=== PATIENT | female | born 1945 | race Caucasian/White ===

== ENCOUNTER → 2016-12-12 | Outpatient (CLI) | payer MEDICARE ==
--- NOTE | 2016-12-12 16:46 | WWHP ---
[facility] - HISTORY AND PHYSICAL DATE OF DICTATION: 12/12/2016 CHIEF COMPLAINT: The patient is here for her routine gynecologic exam and mammogram. HPI: This is a 71-year-old G2, P2 with an LMP of in 1991. She is status post vaginal hysterectomy with BSO for uterine fibroids. She has been using Estrace cream for vaginal dryness and she states this has been very helpful. She has also used oxybutynin for mixed urinary incontinence and also feels that this has been very helpful. She is without gynecologic complaints. PAST MEDICAL HISTORY: Chronic hypertension, elevated cholesterol, and panic attacks. MEDICATIONS: 1. Simvastatin 10 mg daily. 2. Losartan with hydrochlorothiazide 100/25 daily. 3. Potassium 10 mEq daily. 4. Lorazepam 0.5 mg p.r.n. 5. Oxybutynin 5 mg daily. ALLERGIES: TO AUGMENTIN. 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 SOCIAL HISTORY: She quit smoking in 1991. She has about 3 alcohol containing drinks per month and denies drug use. She is a and is not seeing anybody at this time and is not sexually active. She is retired. REVIEW OF SYSTEMS: She has gained about 8 pounds over the last year. She denies respiratory, cardiac or GI problems. She denies maltreatment or falling, but did injure a toe when she stumbled. : She has had a history of mixed urinary incontinence and has done better with oxybutynin. PHYSICAL EXAM: Blood pressure 128/76, height 5 feet 1 inch, weight 181 pounds, temperature 97.8, pulse 81. This is a well-developed, well-nourished, white female, who is alert and oriented x3, in no acute distress. HEENT: Within normal limits. NECK: Supple without mass or thyromegaly chest. LUNGS: Clear to auscultation. HEART: Regular rate and rhythm. Breasts are without mass or discharge. Axillary exam is negative for adenopathy. Back negative for CVA tenderness. ABDOMEN: Soft, nontender, without palpable masses. Pelvic exam: External genitalia reveals [id number] atrophy without lesions. Vagina reveals a grade 2 rectocele which is stable from the past. There is no significant cystocele. There is mild urethral mobility with Valsalva. No urinary leakage was demonstrated. Bimanual exam is negative for mass or tenderness. Rectovaginal exam is negative for mass or tenderness and is negative for occult blood. Extremities nontender. IMPRESSION: 1. 71-year-old menopausal female, status post vaginal hysterectomy with BSO for benign reasons. 2. Asymptomatic grade 2 rectocele. 3. History of mixed urinary incontinence status post sling procedure and has been doing better with oxybutynin. PLAN: 1. Pap smears have been discontinued. 2. Self breast examination was discussed. 3. Mammogram will be done today. 4. Osteoporosis prevention was discussed. 5. We will continue oxybutynin daily. 6. She is also asking for a prescription of Estrace vaginal cream which she has been using for vaginal dryness. This prescription was given to the patient for Estrace 0.5 g intravaginally 2 times weekly. 7. We will consider referral to a SECTION 8 [employer]ERTY MANAGER urologist if she is having greater problems with urinary incontinence, but she states she is not interested in a referral at this time. 8. She does get flu shots in the fall and did get 1 this year. 9. She will return in 1 year. MMODL / IJN: [id number] /
--- NOTE | 2016-12-14 08:46 | MM ---
Reason for exam: screening (asymptomatic). Last mammogram was performed 1 year ago. History: Patient is postmenopausal. Took estrogen for 12 years. Physical Findings: A clinical breast exam by your physician is recommended on an annual basis and results should be correlated with mammographic findings. MG 3D Screening Mammo W/Cad Bilateral CC and MLO view(s) were taken. Prior study comparison: December 06, 2015, bilateral MG 3d screening mammo w/cad. October 06, 2014, bilateral MG screening mammo w CAD. There are scattered fibroglandular densities. No significant changes when compared with prior studies. ASSESSMENT: Negative, BI-RAD 1 RECOMMENDATION: Routine screening mammogram of both breasts in 1 year.
== END | disposition home or self-care (01) ==
LOC: WWCWWP 14:34
PROVIDERS: ATTEND Obstetrics & Gynecology
DX: Z12.31 Encounter for screening mammogram for malignant neoplasm of breast (principal)
CPT/HCPCS: 77063; G0202

== ENCOUNTER → 2018-02-20 | Outpatient (CLI) | payer MEDICARE ==
[2018-02-20 11:00] VITALS: BP 124/84; PULSE 68; TEMP 97.9; BMI 33.6
--- NOTE | 2018-02-20 11:43 | P.HPOB ---
History of Present Illness H&P Date: 02/20/18 Chief Complaint: The patient is here for her routine gynecologic exam and mammogram. This is a 72-year-old with an LMP of 1991. The patient is status post vaginal hysterectomy with BSO for uterine fibroids. She states she no longer uses the estrogen vaginal cream and will use [id number] lubricants for financial reasons. She continues to use oxybutynin and she does find this helpful for her mixed urinary incontinence. She is without gynecologic complaints. Review of Systems She has lost 3 pounds over the last year. She denies respiratory, cardiac and G.I. problems. She denies maltreatment or problems with falling. : she does have occasional urinary leakage especially if she cannot get to the bathroom in time when she has the urge to go. The oxybutynin has been helpful. Past Medical History Past Medical History: Hyperlipidemia, Hypertension Additional Past Medical History / Comment(s): PAST [employer]SM[employer] HISTORY: She has no history of STDs. She had a vaginal hysterectomy with BSO for uterine fibroids. History of Any Multi-Drug Resistant Organisms: None Reported Past Surgical History: Appendectomy, Bladder Surgery (Cystocele with sling procedure in 2009.), Cholecystectomy, Hysterectomy (Vaginal hysterectomy with BSO in 1991.), Orthopedic Surgery (Right knee surgery) Additional Past Surgical History / Comment(s): Colonoscopy (multiple)last 2017. Past Psychological History: Panic Disorder Smoking Status: Never smoker Past Alcohol Use History: Occasional (2 per week) Past Drug Use History: None Reported Additional History: She is a and is not seeing anybody at this time and is not sexually active. She is retired. - Past Family History Sister(s) Family Medical History: Diabetes Mellitus Brother(s) Additional Family Medical History / Comment(s): Alcoholic. Medications and Allergies Home Medications Medication Instructions Recorded Confirmed Type LORazepam [Ativan] PO DAILY PRN 02/20/18 History Losartan/Hydrochlorothiazide 1 each PO DAILY 02/20/18 02/20/18 History [Losartan-Hctz 100-25 mg Tab] Oxybutynin Chloride 5 mg PO DAILY 02/20/18 02/20/18 History Potassium Chloride ER [K-Dur 10] 10 meq PO DAILY 02/20/18 02/20/18 History Simvastatin [Zocor] 10 mg PO 02/20/18 History Allergies Allergy/AdvReac Type Severity Reaction Status Date / Time amoxicillin [From Augmentin] AdvReac Intermediate bleeding Unverified 02/20/18 10:47 clavulanic acid AdvReac Intermediate bleeding Unverified 02/20/18 10:47 [From Augmentin] Exam Vital Signs Temp Pulse BP 02/20/18 10:56 97.9 F 68 124/84 Intake and Output 02/19/18 02/20/18 02/20/18 22:59 06:59 14:59 Other: Weight 80.739 kg Height 5'1", weight 178 pounds, BMI 33.6. This is a well-developed well-nourished white female who is alert and oriented times 3 in no acute distress. HEENT: Within normal limits. NECK: Supple without mass or thyromegaly. CHEST AND LUNGS: Clear to auscultation. HEART: Regular rate and rhythm. BREASTS: Are without mass or discharge. AXILLARY EXAM: Negative for adenopathy. BACK: Negative for CVA tenderness. ABDOMEN: Soft, nontender, without palpable masses. PELVIC EXAM: External genitalia appears normal with moderate atrophy. Vagina appears normal with moderate atrophy. There is a grade 2 rectocele. There is no other significant prolapse noted. Bimanual examination is negative for mass or tenderness. RECTAL EXAM: Rectovaginal exam is negative for mass or tenderness and is negative for occult blood and does confirm a small rectocele. EXTREMITIES: Nontender. IMPRESSION: 1. 72 year old menopausal female status post vaginal hysterectomy and BSO for benign reasons. 2. Asymptomatic grade 2 rectocele. 3. History of mixed urinary incontinence status post cystocele repair and sling procedure who has been doing better with oxybutynin. PLAN: 1. Pap smears have been discontinued. 2. Self breast awareness was discussed with the patient. 3. Screening mammogram will be done today. 4. Osteoporosis prevention was discussed. I have stressed the importance of adequate calcium, vitamin D and regular exercise. Recommended amounts of calcium and vitamin D were also discussed. She had a normal bone density test on 07/25/2013 and we will plan on repeating this in approximately 2020. 5. She did receive a flu shot this fall. 6. Continuing oxybutynin. The electronic prescription will be sent to [facility] in [place] 7. We have discussed the grade 2 rectocele. I have recommended that she not hold stool longer than necessary. This will be followed conservatively. 8. She will return in one year.
--- NOTE | 2018-02-21 11:51 | MM ---
Reason for exam: screening (asymptomatic). Last mammogram was performed 1 year and 2 months ago. History: Patient is postmenopausal. Took estrogen for 12 years. Physical Findings: A clinical breast exam by your physician is recommended on an annual basis and results should be correlated with mammographic findings. MG 3D Screening Mammo W/Cad Bilateral CC and MLO view(s) were taken. Prior study comparison: December 12, 2016, bilateral MG 3d screening mammo w/cad. December 06, 2015, bilateral MG 3d screening mammo w/cad. The breast tissue is heterogeneously dense. This may lower the sensitivity of mammography. There are benign appearing round vascular calcifications bilaterally. There is no discrete abnormality. ASSESSMENT: Benign, BI-RAD 2 RECOMMENDATION: Routine screening mammogram of both breasts in 1 year.
== END ==
LOC: WWCWWP 10:22
PROVIDERS: ATTEND Obstetrics & Gynecology
DX: Z12.31 Encounter for screening mammogram for malignant neoplasm of breast (principal)
CPT/HCPCS: 77063; 77067

== ENCOUNTER → 2019-04-10 | Outpatient (CLI) | payer MEDICARE ==
--- NOTE | 2019-04-10 09:36 | BD ---
EXAMINATION TYPE: Axial Bone Density DATE OF EXAM: 04/10/2019 COMPARISON: 07.25.2013 CLINICAL HISTORY: 73 YR OLD FEMALE....ICD-10 CODE: M89.9 DISORDER OF BONE Height: 59.8 Weight: 181 FRAX RISK QUESTIONS: History of Fracture in Adulthood: YES Secondary Osteoporosis: YES 3. Menopause before 45: YES, AT 43 RISK FACTORS HISTORY OF: HX OF ANKLE AND TOE FX...BOTH > 50 YRS OF AGE Postmenopausal woman: YES, AT AGE 43 YRS OLD TOTAL HYST Take estrogen and/or progesterone medications: YES IN THE PAST FOR ABOUT 10 YRS, NONE NOW Lost more than 2 inches in height since high school: YES Hyperparathyroidism: NO Adrenal Insufficiency: NO MEDICATIONS: Additional Medications: BP MEDS, ATAVAN, STATIN FOR CHOLESTEROL, VIT D , Additional History: HYPERTENSION, CHOLESTEROL, SURGICAL REPAIR OF TOES RECENTLY EXAM MEASUREMENTS: Bone mineral densitometry was performed using the [facility]. Bone mineral density as measured about the Lumbar spine is: ----- L1-L4(G/cm2): 1.590 T Score Values are as follows: ----- L1: 2.4 ----- L2: 2.5 ----- L3: 3.4 ----- L4: 5.0 ----- L1-L4: 3.4 Bone mineral density has: Increased 2.7% since study of: 07.25.2013 Bone mineral density about the R hip (g/cm2): 1.182 Bone mineral density about the L hip (g/cm2): 1.252 T Score values are as follows: -----R Neck: 0.2 -----L Neck: 0.5 -----R Total: 1.4 -----L Total: 1.9 Bone mineral density has: Increased 0.7% since study of: 07.25.2013 FRAX%s: THERE IS A 14.5% CHANCE FOR A MAJOR OSTEOPOROTIC FX AND A 1.3% FOR HIP.....PROBABILITY FOR FX IN 10 YRS TIME IMPRESSION: Normal (Values between +1 and -1 indicate normal bone mass). Consider repeating this study in 5 year s or sooner if there is some new clinical indication. NOTE: T-SCORE=SD OF THE YOUNG ADULT MEAN.
== END | disposition home or self-care (01) ==
LOC: RADBDWWP 08:19
PROVIDERS: ATTEND Internal Medicine
DX: M89.9 Disorder of bone, unspecified (principal)
CPT/HCPCS: 77080

== ENCOUNTER → 2020-08-10 | Outpatient (CLI) | payer MEDICARE ==
--- NOTE | 2020-08-11 13:49 | MM ---
Reason for exam: screening (asymptomatic). Last mammogram was performed 2 years and 6 months ago. History: Patient is postmenopausal. Took estrogen for 12 years. Physical Findings: A clinical breast exam by your physician is recommended on an annual basis and results should be correlated with mammographic findings. MG 3D Screening Mammo W/Cad Bilateral CC and MLO view(s) were taken. Prior study comparison: February 20, 2018, bilateral MG 3d screening mammo w/cad. December 12, 2016, bilateral MG 3d screening mammo w/cad. There are scattered fibroglandular densities. There are benign appearing round vascular calcifications bilaterally. There is no discrete abnormality. ASSESSMENT: Benign, BI-RAD 2 RECOMMENDATION: Routine screening mammogram of both breasts in 1 year.
== END | disposition home or self-care (01) ==
LOC: RADMAMWWP 10:51
PROVIDERS: ATTEND Internal Medicine
DX: Z12.31 Encounter for screening mammogram for malignant neoplasm of breast (principal)
CPT/HCPCS: 77063; 77067

== ENCOUNTER → 2021-05-04 | Outpatient (CLI) | payer MEDICARE ==
--- NOTE | 2021-05-05 07:46 | US ---
EXAMINATION TYPE: US thyroid st tissue head/neck DATE OF EXAM: 05/04/2021 COMPARISON: NONE CLINICAL HISTORY: R22.1 Neck mass, M89.8X1 Collar bone pain. palpable right supraclavicular area. wolfgang nful with certain movements scanned area of palpable, right supraclavicular area. hypoechoic area noted = 1.1 x 1.3 x 1.5cm IMPRESSION: There may be a supraclavicular lymph node on the right. Recommend contrast CT neck for a dditional workup.
== END | disposition home or self-care (01) ==
LOC: RADUSWWP 15:33
PROVIDERS: ATTEND Internal Medicine
DX: R22.1 Localized swelling, mass and lump, neck (principal); M89.8X1 Other specified disorders of bone, shoulder
CPT/HCPCS: 76536

== ENCOUNTER → 2021-05-17 | Outpatient (CLI) | payer MEDICARE ==
[2021-05-17 07:25] LABS: African American GFR (CKD) >90 (>60 ml/min/1.73 sqM); Blood Urea Nitrogen 14 mg/dL (7-17); Non-African American GFR(CKD) >90 (>60 ml/min/1.73 sqM)
--- NOTE | 2021-05-17 08:56 | CT ---
EXAMINATION TYPE: CT soft tissue neck w con DATE OF EXAM: 05/17/2021 HISTORY: lymphadenopathy, abnormal ultrasound. COMPARISON: Neck ultrasound May 04, 2021 CT DLP: 572 mGycm. Automated Exposure Control for Dose Reduction was Utilized. TECHNIQUE: CT scan of the neck is performed with IV Contrast, patient injected with 100 mL of Isovue 300, axial images are obtained, coronal and sagittal reformatted images are reviewed. FINDINGS: Airway: Moderate emphysematous change in visualized upper lungs. Parotid/submandibular glands: No gross abnormality seen. Carotid/Vascular Structures: Focal moderate calcified plaque at left carotid bulb without significant stenosis. Osseous Structures: Moderate spurring and disc space narrowing C5-C6 and C6-C7 levels. Degenerative change bilateral sternoclavicular joints more prominent on the right with increased narr owing along with sclerosis and subchondral cystic change. Small amount of fluid at this level may be present though not identified on recent US. Metallic BB at site of palpable abnormality axial image 6 4 is noted. There is normal distal sternocleidomastoid muscle. There is small caliber vessel or suspe cted collateral draining vein. No worrisome solid or cystic mass or fluid collection is seen to corre spond to the lesion of suspicion on recent ultrasound. This is just below the thyroid gland and along the superior margin of the proximal clavicle. Corresponding to ultrasound at the sternoclavicular mariia int on axial image 68 shows oval heterogeneous tissue surrounding proximal clavicle felt to reflect t hickened capsular hypertrophy. There is asymmetric anterior protrusion of the right proximal clavicle likely accounting for the palpable abnormality when comparing with opposite left side. No definitive bony erosions to suggest infection or inflammation currently. Other: A few prominent nodes scattered subcentimeter lymph nodes throughout the neck bilaterally. No abnormal greater than 1 cm-like adenopathy. 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 No definiti ve bony erosions to suggest infection or inflammatory etiology currently. I would consider correlatin g with inflammatory markers such as C reactive protein and ESR if patient had symptoms of fever or le ukocytosis.
== END | disposition home or self-care (01) ==
LOC: RADCTMAIN 06:40
PROVIDERS: ATTEND Internal Medicine
DX: R59.1 Generalized enlarged lymph nodes (principal); R93.89 Abnormal findings on diagnostic imaging of other specified body structures
CPT/HCPCS: 82565; 84520; 70491; 36415; Q9967

== ENCOUNTER → 2022-01-17 | Outpatient (CLI) | payer MEDICARE ==
--- NOTE | 2022-01-18 08:09 | MM ---
Reason for Exam: Screening (asymptomatic). Last mammogram was performed 1 year(s) and 5 month(s) ago. Patient History: Menarche at age 15. First Full-Term at age 22. Left ovary removed at age 45. Right ovary removed at age 45. Hysterectomy at age 45. Postmenopausal. Patient used Estrogen for 12 years. Risk Values: Radha 5 year model risk: 1.6%. NCI Lifetime model risk: 3.7%. Prior Study Comparison: 12/12/2016 Bilateral Screening Mammogram, [facility]. 02/20/2018 Bilateral Screening Mammogram, [facility]. 08/10/2020 Bilateral Screening Mammogram, [facility]. Tissue Density: The breast tissue is almost entirely fat. Findings: Analyzed By CAD. There is no suspicious group of microcalcifications or new suspicious mass in either breast. Overall Assessment: Negative, BI-RAD 1 Management: Screening Mammogram of both breasts in 1 year. A clinical breast exam by your physician is recommended on an annual basis and results should be correlated with mammographic findings. [facility] will attempt to contact patient to return for supplemental views and ultrasound if indicated. Electronically signed and approved by: Girish Jurado DO
== END | disposition home or self-care (01) ==
LOC: RADMAMWWP 10:42
PROVIDERS: ATTEND Nurse Practitioner Family
DX: Z12.31 Encounter for screening mammogram for malignant neoplasm of breast (principal); Z78.0 Asymptomatic menopausal state; Z90.721 Acquired absence of ovaries, unilateral
CPT/HCPCS: 77063; 77067

== ENCOUNTER → 2022-05-27 | Outpatient (CLI) | payer MEDICARE ==
--- NOTE | 2022-05-28 17:10 | MR ---
EXAMINATION TYPE: MR brain wo con DATE OF EXAM: 05/27/2022 COMPARISON: None HISTORY: Cerebrovascular disease. CONTRAST: Performed utilizing 0 mL intravenous Gadavist gadolinium contrast. TECHNIQUE: Multiplanar, multiecho imaging on a 3.0 Leonor magnet is performed through the brain. Stud y is performed within 24 hours of arrival to the hospital. The craniovertebral junction is normal. The pituitary is normal. Diffusion-weighted imaging is performed. No abnormal hyperintensity is present to suggest an acute i ntracranial infarct or acute ischemic change. There are scattered punctate areas of hyperintensity on T2 and Inversion Recovery weighted sequences in the periventricular and subcortical white matter which are non-specific but can be related to micr ovascular ischemic changes. Differential diagnosis could include multiple sclerosis, vasculitis, migr deshaun headaches Ventricles and sulci are appropriate for the patient age. IMPRESSIONS: 1. Scattered nonspecific deep white matter changes. Chronic white matter ischemic changes likely with in the differential.
== END | disposition home or self-care (01) ==
LOC: RADMRIMAIN 11:11
PROVIDERS: ATTEND Psychiatry & Neurology Neurology
DX: I67.9 Cerebrovascular disease, unspecified (principal); I67.82 Cerebral ischemia
CPT/HCPCS: 70551